=== PATIENT | male | born 1955 | race African-American/Black ===

== ENCOUNTER 2017-12-28 03:05 | Inpatient (IN) | payer OTHER ==
[~2017-12-28] VITALS: Ht 172.7 cm; Wt 66.2 kg
--- NOTE | ~2017-12-28 | HC ---
[facility] [place] [address] CONSULTATION Name: THERESE PAGAN KAMRYN Room #: 421-P [facility] IN M.R.#: [id number] Admission: 12/28/17 Attend Phys: Tk Henriquez MD Discharge: Date of : 51 Report #: [id number] THIS REPORT FOR: //name// CC: Tk Castro DATE OF SERVICE: 12/30/2017 ATTENDING PHYSICIAN: Dr. Rahman. REASON FOR CONSULTATION: UTI. HISTORY OF PRESENT ILLNESS: A 62-year-old -[place] Citizen man recently treated at [facility] for an E. coli urinary tract infection. He received treatment with oral fosfomycin grams every 3 days. The patient again developed fevers and is admitted. He was started on Zosyn. MICROBIOLOGY DATA: Urine culture revealed growth of 100,000 colonies of E. coli sensitive to amikacin, Augmentin, ceftazidime, gentamicin, imipenem and Zosyn. The organism is an ESBL. PAST MEDICAL HISTORY: Recurrent urinary tract infection. Self catheterization for bladder dysfunction at least up to 5 times daily. Lately, he had been on treatment with fosfomycin. History of liver cirrhosis due to hepatitis C that was treated with Harvoni. Esophageal varices. PTSD. Depression. FAMILY HISTORY: See H and P. SOCIAL HISTORY: See H and P. REVIEW OF SYSTEMS: Essentially noncontributory. PHYSICAL EXAMINATION: GENERAL: A well-developed man, nontoxic looking, in no distress, afebrile since admission. VITAL SIGNS: Temperature maximum 99.6, pulse 98, respirations 67, BP 153/90. HEENMT: Pupils reactive. Mouth, missing teeth, periodontal disease. NECK: Supple. LUNGS: Clear. HEART: S1, S2. ABDOMEN: Soft, no masses or megaly. GENTALIA AND RECTAL: Deferred. EXTREMITIES: Normal. LABORATORY DATA: Sodium 140, potassium 3.7, BUN 7, creatinine 1.1. On admission, WBC 14,100 with 80% neutrophils. Today, the WBC 7000, hemoglobin [facility] [address] [place] [address] CONSULTATION Name: THERESE PAGAN KAMRYN Room #: 421-P [facility] IN ..#: [id number] Admission: 12/28/17 Attend Phys: Tk Henriquez MD Discharge: Date of : 51 Report #: [id number] 13.7 g/dL, and the white blood cell count differential revealed 34% segmented neutrophils, 47% lymphocytes. Platelets 177,000. Urinalysis with positive nitrite, pyuria, bacteriuria. ASSESSMENT: 1. Recurrent urinary tract infections, ESBL E. coli. 2. Liver cirrhosis due to hepatitis C. SUGGESTIONS: For the time being since the patient has defervesced, I suppose we could continue with Zosyn, though meropenem may be a better drug for ESBL-type organisms. The main issue will be the treatment on an outpatient basis and obviously fosfomycin that appears to have been effective before january be the drug that we may need to consider for this patient. The main question is whether he became febrile and with E. coli in the urine by recent treatment with fosfomycin which may raise the possibility of this being a resistant organism. Bactrim appears to be effective in this gentleman, so this may be a good option as far as treatment is concerned. Bactrim-DS p.o. b.i.d. for 10-[address] Rahman, thank you for requesting my suggestions. <ELECTRONICALLY SIGNED> By: Ceferino Barragan MD 12/31/17 0922 [id number] 1226 Ceferino Barragan MD /nt
[2017-12-28 03:15] VITALS: BP 152/112
[2017-12-28 03:47] LABS: ABSOLUTE NEUTROPHILS 11.3 thou/uL (1.4-8.2); BASOPHILS 0.4 % (0.0-2.0); EOSINOPHILS 0.2 % (0.0-3.0); HEMATOCRIT 46.9 % (42.0-52.0); HEMOGLOBIN 16.1 gm/dL (14.0-18.0); LYMPHOCYTES 13.3 % (24.0-44.0); MCH 33.8 pg (26.0-34.0); MCHC 34.4 g/dL (28.0-37.0); MCV 98.2 fL (80.0-100.0); MONOCYTES 5.7 % (1.0-8.0); PLATELET COUNT 200 thou/uL (150-400); POLYS 80.4 % (36.0-66.0); RBC 4.77 mil/uL (4.50-6.00); RDW 12.8 % (10.5-14.5); WBC 14.1 thou/uL (4.0-11.0)
[2017-12-28 03:58] LABS: CALCIUM 9.4 mg/dL (8.5-10.1)
[2017-12-28 04:25] LABS: URINE BILIRUBIN NEGATIVE (Negative); URINE BLOOD NEGATIVE (Negative); URINE CLARITY SL CLOUDY; URINE COLOR YELLOW; URINE GLUCOSE-RANDOM* NEGATIVE (Negative); URINE KETONES NEGATIVE (Negative); URINE PROTEIN (DIPSTICK) NEGATIVE (Negative); URINE SPECIFIC GRAVITY 1.015 (1.005-1.035); URINE UROBILINOGEN 0.2 E.U./dl (0.2-1.0)
[2017-12-28 04:28] LABS: URINE LEUKOCYTES-REFLEX 2+ (Negative); URINE NITRITE-REFLEX POSITIVE (Negative)
[2017-12-28 04:32] LABS: CASTS None Seen /LPF (None Seen); MUCUS None Seen strn/LPF (None Seen); SQUAMOUS None Seen /LPF (0-3); URINE WBC-REFLEX >25 Many /HPF (0-5)
[2017-12-28 04:33] LABS: BACTERIA-REFLEX >30 Many /HPF (None Seen); CRYSTALS None Seen /LPF (None Seen); URINE RBC 0-2 Rare /HPF (0-2)
[2017-12-28 05:23] VITALS: BP 145/98
[2017-12-28] MEDS ORDERED: OXYCONTIN15 MG PO (05:58)
[2017-12-28] MEDS ORDERED: DOLOPHINE HCL5 MG PO (05:59)
[2017-12-28] MEDS ORDERED: ATIVAN1 MG PO (05:59)
[2017-12-28 06:00] VITALS: BP 131/87
[2017-12-28] MEDS ORDERED: FLOMAX0.4 MG PO (06:00)
[2017-12-28] MEDS ORDERED: PROTONIX 20 MG20 M1 PO (06:02)
[2017-12-28 08:29] VITALS: BP 144/87
[2017-12-28 15:36] VITALS: BP 124/74
[2017-12-28 20:00] VITALS: BP 149/70
[2017-12-29 04:00] VITALS: BP 136/76
[2017-12-29 07:00] VITALS: BP 142/87
[2017-12-29 07:21] LABS: ABSOLUTE NEUTROPHILS 3.3 thou/uL (1.4-8.2); BASOPHILS 0.4 % (0.0-2.0); EOSINOPHILS 1.4 % (0.0-3.0); HEMATOCRIT 36.4 % (42.0-52.0); LYMPHOCYTES 47.5 % (24.0-44.0); MCHC 34.5 g/dL (28.0-37.0); MCV 98.5 fL (80.0-100.0); PLATELET COUNT 172 thou/uL (150-400); POLYS 39.7 % (36.0-66.0); RDW 13.1 % (10.5-14.5); WBC 8.4 thou/uL (4.0-11.0)
[2017-12-29 07:22] LABS: CALCIUM 8.7 mg/dL (8.5-10.1); POTASSIUM 3.8 mmol/L (3.5-5.1)
[2017-12-29 07:26] LABS: HEMOGLOBIN 12.6 gm/dL (14.0-18.0)
[2017-12-29 20:00] VITALS: BP 167/90
[2017-12-30 05:30] VITALS: BP 117/65
[2017-12-30 06:07] LABS: HEMOGLOBIN 13.7 gm/dL (14.0-18.0); MCH 33.7 pg (26.0-34.0); MCHC 34.3 g/dL (28.0-37.0); MCV 98.3 fL (80.0-100.0); PLATELET COUNT 177 thou/uL (150-400); RBC 4.06 mil/uL (4.50-6.00); RDW 13.1 % (10.5-14.5)
[2017-12-30 06:30] LABS: CREATININE 1.1 mg/dL (0.7-1.3); POTASSIUM 3.7 mmol/L (3.5-5.1)
[2017-12-30 07:55] VITALS: BP 153/90
[2017-12-30 08:15] LABS: ABSOLUTE NEUTROPHILS 2.5 thou/uL (1.4-8.2); ATYPICAL LYMPHS 3 %; LARGE PLATELETS OCCASIONAL
[2017-12-30 15:30] VITALS: BP 119/72
[2017-12-30 19:44] VITALS: BP 153/71
[2017-12-31 03:50] VITALS: BP 138/69
[2017-12-31 07:40] VITALS: BP 159/81
[2017-12-31] MEDS ORDERED: NITROFURANTOIN100 MG PO (08:45)
[2017-12-31 10:38] VITALS: BP 159/81
[2017-12-31 12:47] VITALS: BP 159/81
== END 2017-12-31 14:31 | disposition home or self-care (01) | DRG 872 ==
LOC: ER 03:05 → EROBS 04:47 → 4E 04:47
PROVIDERS: Emergency Medicine; Family Medicine
DX: A41.9 Sepsis, unspecified organism (principal); N39.0 Urinary tract infection, site not specified; I85.10 Secondary esophageal varices without bleeding; F32.9 Major depressive disorder, single episode, unspecified; F43.10 Post-traumatic stress disorder, unspecified; Z16.12 Extended spectrum beta lactamase (ESBL) resistance; B96.20 Unspecified Escherichia coli [E. coli] as the cause of diseases classified elsewhere; K74.60 Unspecified cirrhosis of liver; B19.20 Unspecified viral hepatitis C without hepatic coma; N31.9 Neuromuscular dysfunction of bladder, unspecified; Z79.899 Other long term (current) drug therapy; Z87.891 Personal history of nicotine dependence
CPT/HCPCS: 10183